=== PATIENT | male | born 1970 | race Caucasian/White ===

== ENCOUNTER 2018-03-13 11:48 | Emergency (ER) | payer SELFPAY ==
[~2018-03-13] VITALS: Ht 190.5 cm; Wt 88.6 kg
[2018-03-13 11:57] VITALS: Ht 190.5 cm; Wt 88.6 kg
[2018-03-13 14:13] VITALS: BP 116/71
== END 2018-03-13 13:33 | disposition home or self-care (01) ==
LOC: D.ER 11:48
DX: S81.811A Laceration without foreign body, right lower leg, initial encounter (principal); W26.8XXA Contact with other sharp object(s), not elsewhere classified, initial encounter; Y93.89 Activity, other specified; Y92.019 Unspecified place in single-family (private) house as the place of occurrence of the external cause; F17.200 Nicotine dependence, unspecified, uncomplicated